=== PATIENT | female | born 1975 | race Caucasian/White ===

== ENCOUNTER 2018-05-18 21:32 | Emergency (ER) | payer BC ==
[~2018-05-18] VITALS: Ht 162.6 cm; Wt 59.0 kg
[2018-05-19] MEDS ORDERED: KETO10TA2 PO (08:08)
[2018-05-19] MEDS ORDERED: CIPRO500 MG PO (08:08)
== END 2018-05-19 08:26 ==
LOC: ER 21:32
DX: N20.0 Calculus of kidney (principal)